=== PATIENT | male | born 1975 | race Caucasian/White ===

== ENCOUNTER → 2016-12-18 09:22 | Outpatient (CLI) | payer MEDICAID | END | disposition home or self-care (01) | LOC: D.CT 09:22 | DX: R22.1 Localized swelling, mass and lump, neck (principal) ==

== ENCOUNTER 2016-12-24 07:49 | Outpatient (CLI) | payer MEDICAID ==
[~2016-12-24] VITALS: Ht 180.3 cm; Wt 111.4 kg
[2016-12-24] MEDS ORDERED: DIFLUCAN150 MG PO (08:28)
[2016-12-24] MEDS ORDERED: PROTONIX40 MG PO (08:28)
[2016-12-24 08:35] VITALS: BP 136/88; Ht 180.3 cm; Wt 111.4 kg
[2016-12-24 08:38] LABS: BASOPHILS 0.3 % (0-2); EOSINOPHILS 2.4 % (0-7); HEMATOCRIT 46.6 % (42.0-54.0); HEMOGLOBIN 15.8 g/dL (13.5-17.5); IMMATURE GRANULOCYTES 0.1 % (0-5); LYMPHOCYTES 35.3 % (15-50); MCH 29.9 pg (26.0-34.0); MCHC 33.9 g/dL (31.0-37.0); MCV 88.3 fL (80.0-100.0); MEAN PLATELET VOLUME 11.1 fL (7.4-10.4); MONOCYTES 7.5 % (2-11); NEUTROPHILS 54.4 % (40-80); PLATELET COUNT 212 10x3/uL (130-400); RBC 5.28 10x6/uL (4.20-6.10); RDW 12.1 % (11.5-14.5); WBC 8.7 10x3/uL (4.8-10.8)
[2016-12-24] MEDS ORDERED: SUBOXONE 2 MG-01 TAB SL ×2 (08:38)
[2016-12-24 08:50] LABS: APTT 28.7 SECONDS (22.8-39.4); CALC OSMOLALITY 272 mosm/kg (275-300); CALCIUM 8.9 mg/dL (8.5-10.1); CHLORIDE - SERUM 102 mmol/L (98-107); CREATININE - SERUM 0.9 mg/dL (0.6-1.3); GLUCOSE 107 mg/dL (74-106); INR 1.08 (0.85-1.17); POTASSIUM - SERUM 4.2 mmol/L (3.5-5.1); PROTIME 13.9 SECONDS (11.6-15.0); SODIUM 136 mmol/L (136-145); UREA NITROGEN 16 mg/dL (7-18); eGFR NON AFRICAN AMERICAN > 90 mL/min (90-120)
--- NOTE | 2016-12-24 11:54 | NUR ---
1135-RECD TO ROOM FROM IR. ALERT/ORIENTED. RESP WITH EASE. R NECK BANDAID DRY AND INTACT. DENIES PAIN. IV PATENT. 1145-REGULAR LUNCH TRAY SERVED
== END 2016-12-24 12:33 | disposition home or self-care (01) ==
LOC: D.OPS 07:49 → D.CT 10:00 → D.OPS 12:33
PROVIDERS: Specialist
DX: R59.0 Localized enlarged lymph nodes (principal); Z01.812 Encounter for preprocedural laboratory examination

== ENCOUNTER → 2016-12-27 08:46 | Outpatient (CLI) | payer MEDICAID ==
[2016-12-24 08:35] VITALS: BMI 34.2
[~2016-12-27 08:46] MED LIST: DIFLUCAN150 MG PO; PROTONIX40 MG PO; SUBOXONE 2 MG-01 TAB SL
== END | disposition home or self-care (01) ==
LOC: D.NM 08:46
DX: R10.9 Unspecified abdominal pain (principal); R59.0 Localized enlarged lymph nodes

== ENCOUNTER 2017-01-04 07:52 | Outpatient (CLI) | payer MEDICAID ==
[~2017-01-04] VITALS: Ht 180.3 cm; Wt 113.6 kg
[2017-01-04 08:36] LABS: BASOPHILS 0.4 % (0-2); EOSINOPHILS 2.2 % (0-7); HEMOGLOBIN 16.1 g/dL (13.5-17.5); IMMATURE GRANULOCYTES 0.2 % (0-5); LYMPHOCYTES 39.4 % (15-50); MCHC 33.5 g/dL (31.0-37.0); MCV 89.6 fL (80.0-100.0); MEAN PLATELET VOLUME 10.9 fL (7.4-10.4); MONOCYTES 8.6 % (2-11); NEUTROPHILS 49.2 % (40-80); PLATELET COUNT 210 10x3/uL (130-400); RBC 5.36 10x6/uL (4.20-6.10); RDW 12.1 % (11.5-14.5); WBC 10.3 10x3/uL (4.8-10.8)
[2017-01-04 08:57] LABS: CALC OSMOLALITY 282 mosm/kg (275-300); CALCIUM 9.2 mg/dL (8.5-10.1); CARBON DIOXIDE 29.4 mmol/L (21.0-32.0); CHLORIDE - SERUM 103 mmol/L (98-107); CREATININE - SERUM 1.1 mg/dL (0.6-1.3); GLUCOSE 101 mg/dL (74-106); POTASSIUM - SERUM 4.2 mmol/L (3.5-5.1); SODIUM 141 mmol/L (136-145); UREA NITROGEN 17 mg/dL (7-18); eGFR NON AFRICAN AMERICAN 78 mL/min (90-120)
[2017-01-04 09:04] LABS: APTT 29.1 SECONDS (22.8-39.4); INR 0.99 (0.85-1.17)
[2017-01-04 09:24] VITALS: BP 155/98; Ht 180.3 cm; Wt 113.6 kg
--- NOTE | 2017-01-04 16:02 | NUR ---
1335 AWAKE & ALERT. IV DC'ED WITH CATH INTACT & 375ML LTC. DRESSING. Parvez KERR R.N. 1345 DRESSED. AWAKE & ALERT. GIVEN DISCHARGE INSTRUCTIONS INCLUDING DISCHARGE INSTRUCTIONS FOR CT GUIDED BIOPSY, MED REC, & [facility] OUTPT D/C INSTRUCTIONS. PT VOICED UNDERSTANDING. TO PRIVATE CAR PER WHEELCHAIR. HOME WITH , MERVIN COOK. Parvez KERR R.N.
== END 2017-01-04 13:45 | disposition home or self-care (01) ==
LOC: D.OPS 07:52 → D.RAD 10:00 → D.OPS 10:00
PROVIDERS: Radiology Diagnostic Radiology
DX: R22.1 Localized swelling, mass and lump, neck (principal); F17.200 Nicotine dependence, unspecified, uncomplicated; K21.9 Gastro-esophageal reflux disease without esophagitis; E66.9 Obesity, unspecified; Z68.34 Body mass index [BMI] 34.0-34.9, adult; Z01.812 Encounter for preprocedural laboratory examination